=== PATIENT | female | born 1985 | race Caucasian/White ===

== ENCOUNTER 2021-01-30 10:54 | Emergency (ER) | payer OTHER, SELFPAY ==
[2021-01-30 11:09] VITALS: BP 119/86; PULSE 85; RESP 16; TEMP 36.1; O2SAT 99
--- NOTE | 2021-01-30 11:49 | ED.NAVMDI ---
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 Patient requests work excuse for a shorter couple day history of diarrhea x4-5. No fever, vomiting/diarrhea, blood, foreign travel, prior surgeries; no loss of taste/smell, CP, rash, S OB. Symptoms are mild, slightly worse with eating, associated with some minimal cramps Related Data Home Medications Medication Instructions Recorded Confirmed cholecalciferol (vitamin D3) 01/30/21 01/30/21 fluoxetine mg 01/30/21 hydrochlorothiazide 01/30/21 hydroxyzine pamoate 01/30/21 norgestimate-ethinyl estradiol tablet 01/30/21 [Vob-Nq-Kepojaxf] phentermine mg 01/30/21 quetiapine mg PO 01/30/21 trazodone 01/30/21 Allergies Allergy/AdvReac Type Severity Reaction Status Date / Time gabapentin Allergy Intermediate Other Verified 01/30/21 11:42 azithromycin Allergy Mild RASH Verified 01/30/21 11:42 quetiapine Allergy Mild INVOLUNTARY Verified 01/30/21 11:42 MOVEMENT hornet venom Allergy Unknown Anaphylactic Verified 01/30/21 11:42 Shock Review of Systems Review of Systems: General/Constitutional: No weight loss,fever Eyes: N0: Redness,discharge Ears/Nose/Throat: No: Epistaxis,ear discharge Respiratory: Denies: Hemoptysis Gastrointestinal: No Vomiting, Bleeding-rectal Skin: No Lumps, eruption Neurologic: No Focal Weakness,Sz Hematologic: Denies: Petechiae/Purpura Psychiatric: No: Suicida ideationl All Other Systems: Reviewed and Negative Exam Narrative: General Appearance: Well appearing, No distress EYE: PERRLA, Conjunctiva clear Ears: External ear normal Nose: Normal nose Mouth/Throat: Normal appearing, Normal lips Neck: Supple Respiratory: Airway patent, No respiratory distress Cardiovascular: RRR Abdomen: Soft, Non-tender, No massess, No organomegaly (no rebound/ surgical signs), Hyperactive bowel sounds Musculoskeletal: Full ROM Skin: Warm, Dry Neurological: A&O x3, CN II-X intact Psychiatric: Normal mood, Normal affect Course Vital Signs Vital signs: Vital Signs Temperature 96.9 F L 01/30/21 11:09 Pulse Rate 85 01/30/21 11:09 Respiratory Rate 16 01/30/21 11:09 Blood Pressure 119/86 01/30/21 11:09 Pulse Oximetry 99 01/30/21 11:09 Temperature 96.9 F L 01/30/21 11:09 Pulse Rate 85 01/30/21 11:09 Respiratory Rate 16 01/30/21 11:09 Blood Pressure 119/86 01/30/21 11:09 Pulse Oximetry 99 01/30/21 11:09 Discharge Plan Discharge Clinical Impression: Diarrhea Qualifiers: Diarrhea type: unspecified type Qualified Code(s): R19.7 - Diarrhea, unspecified Patient Disposition: Home, Self-Care Condition: Stable Instructions: Acute Diarrhea (ED) Additional Instructions: You may try OTC preparations like Imodium, Mylanta, Pepcid etc. Prescriptions: New diphenoxylate-atropine [Lomotil] 2.5-0.025 mg tablet 1 tablet PO DAILY PRN (Reason: diarrhea) Qty: 7 RF: 0 albuterol sulfate [Ventolin HFA] 90 mcg/actuation HFA aerosol inhaler 2 puff INHALATION QID PRN (Reason: shortness of breath or wheezing) Qty: 8.5 RF: 1 ondansetron HCl [Zofran] 4 mg tablet 4 mg PO DAILY PRN (Reason: nausea and vomiting) 1 Days Qty: 7 RF: 0 No Action phentermine 37.5 mg tablet RF: 0 trazodone 100 mg tablet RF: 0 fluoxetine 20 mg capsule RF: 0 hydroxyzine pamoate 25 mg capsule RF: 0 norgestimate-ethinyl estradiol [Qbv-Uf-Fojmicjy] 0.18/0.215/0.25 mg-25 mcg tablet RF: 0 hydrochlorothiazide 12.5 mg tablet RF: 0 cholecalciferol (vitamin D3) 1,250 mcg (50,000 unit) capsule RF: 0 quetiapine 50 mg tablet extended release 24 hr PO RF: 0 Follow-up/Referr
== END 2021-01-30 12:07 | disposition home or self-care (01) ==
PROVIDERS: Emergency Provider Emergency Medicine; PCP Student in an Organized Health Care Education/Training Program
DX: R19.7 Diarrhea, unspecified (principal)
CPT/HCPCS: 99213; G0463

== ENCOUNTER 2022-11-16 01:04 | Day surgery (SDC) | payer OTHER, SELFPAY ==
[2022-11-09 15:05] VITALS: BMI 32.0
[2022-11-16 10:12] VITALS: BP 108/74; PULSE 67; RESP 16; TEMP 36.2; O2SAT 98
[2022-11-16] MEDS: LACTATED RINGERS 1,000 ML 150 ML IV CONT (10:13)
--- NOTE | 2022-11-16 10:22 | P.PNAN_ITS ---
Anes - Initial Pre Proc Eval Procedure: Operation Date: 11/16/22 12:30 Proposed Procedures p Colonoscopy - Jason Mcakey MD Date/Time: 11/16/22 10:22 Surgeon: Jason Mackey MD Pre Op Diagnosis: family hx colon ca Patient Data Age: 37 Gender: F Height: 1.57 m Weight: 79.6 kg Last Vital Signs Temp 97.2 F L 11/16/22 10:12 Pulse 67 11/16/22 10:12 Resp 16 11/16/22 10:12 BP 108/74 11/16/22 10:12 Pulse Ox 98 11/16/22 10:12 O2 Del Method Room Air 11/16/22 10:12 Allergies Allergy/AdvReac Type Severity Reaction Status Date / Time hornet venom Allergy Unknown Anaphylactic Verified 11/16/22 10:11 Shock Home Medications Medication Instructions Recorded Confirmed Type albuterol sulfate 90 mcg/actuation 2 puff inhalation QID PRN 01/30/21 11/16/22 Rx aerosol inhaler (Ventolin HFA) shortness of breath or wheezing #8.5 grams fluoxetine 20 mg capsule (Prozac) 20 mg PO DAILY 01/30/21 11/16/22 History norgestimate 0.18 mg/0.215 mg/0.25 1 tablet PO DAILY 01/30/21 11/16/22 History mg-ethinyl estradiol 25 mcg tablet (Fkt-Cm-Mqbvmvls) phentermine 37.5 mg tablet 37.5 mg PO DAILY 01/30/21 11/16/22 History quetiapine 50 mg tablet,extended 100 mg PO HS 01/30/21 11/16/22 History release 24 hr (Seroquel XR) lurasidone 20 mg tablet (Latuda) 20 mg PO DAILY 11/09/22 11/16/22 History propranolol 40 mg tablet 40 mg PO Q12H 11/09/22 11/16/22 History Patient hx anesthesia problems: none Family hx anesthesia problems: none Results Review: All pre-operative results and documents have been reviewed as part of the pre- operative evaluation. [facility] Past Medical History Medical History Family hx of colon cancer Social History Social History Smoking status: Smoker, status unknown Anes - Eval Final PreProcedure Day of Procedure 11/16/22 10:22 Patient weight: obese Heart: regular rate and rhythm Lungs: clear to auscultation Airway: Mallampati scale class II Neurological: alert and oriented Last oral intake: >/= 8 hours ASA classification: II Emergent: no Anesthetic plan: proceed Anesthesia type and monitoring: general GIVS and standard monitoring Results Review: All pre-operative results and documents have been reviewed as part of the pre- operative evaluation. Informed Consent: The patient's anesthetic plan and its attendant risks and benefits were discussed with the patient/family/POA. Questions were solicited and answers provided to the satisfaction of the patient/family/POA.
--- NOTE | 2022-11-16 10:24 | PM.HPGS ---
History of Present Illness History of Present Illness Consent: Risks, benefits, and alternatives have been discussed and questions answered. Patient agrees to proceed with procedure. Chief complaint: family hx colon ca Narrative: Victoria Rebollar is a 37 year old female here for first colonoscopy, brother had colon cancer Review of Systems Constitutional: Constitutional: Denies headache(s) and Denies weakness Eyes: Eyes: Denies blurry vision ENT: Reports Normal hearing present, Denies headache(s) and Denies neck pain Cardiovascular: Cardiovascular: Denies chest pain and Denies dyspnea Respiratory: Respiratory: Denies dyspnea Gastrointestinal: Gastrointestinal: Reports no additional gastrointestinal complaints Genitourinary: Genitourinary: Denies dysuria Musculoskeletal: Musculoskeletal: Denies neck pain Integumentary/Breasts: Skin/Breast: Denies dry skin Neurologic: Reports Normal hearing present, Denies headache(s) and Denies weakness Psychiatric: Psychiatric: Denies anxiety Endocrine: Endocrine: Denies change in body appearance Hematologic/Lymphatic: Hematologic/Lymphatic: Denies easy bleeding Allergic/Immunologic: Allergic/Immunologic: Denies urticaria PMFSH Past Medical History Medical History Family hx of colon cancer Social History Social History Smoking status: Smoker, status unknown Meds Home Medications and Allergies Home Medications Medication Instructions Recorded Confirmed Type albuterol sulfate 90 mcg/actuation 2 puff inhalation QID PRN 01/30/21 11/16/22 Rx aerosol inhaler (Ventolin HFA) shortness of breath or wheezing #8.5 grams fluoxetine 20 mg capsule (Prozac) 20 mg PO DAILY 01/30/21 11/16/22 History norgestimate 0.18 mg/0.215 mg/0.25 1 tablet PO DAILY 01/30/21 11/16/22 History mg-ethinyl estradiol 25 mcg tablet (Kjb-Ke-Plhwvgzo) phentermine 37.5 mg tablet 37.5 mg PO DAILY 01/30/21 11/16/22 History quetiapine 50 mg tablet,extended 100 mg PO HS 01/30/21 11/16/22 History release 24 hr (Seroquel XR) lurasidone 20 mg tablet (Latuda) 20 mg PO DAILY 11/09/22 11/16/22 History propranolol 40 mg tablet 40 mg PO Q12H 11/09/22 11/16/22 History Allergies Allergy/AdvReac Type Severity Reaction Status Date / Time hornet venom Allergy Unknown Anaphylactic Verified 11/16/22 10:11 Shock Vital Signs Vital Signs - 24 hr 11/16/22 10:12 Temperature 97.2 F L Pulse Rate 67 Respiratory Rate 16 Blood Pressure 108/74 Pulse Oximetry 98 Oxygen Delivery Room Air Exam Const: General: comfortable and no acute distress HENMT: Face/Nose/Sinus: Normal nares present Eyes: General: appearance normal, both eyes and all related structures Neck: Neck: no JVD Resp: Auscultation: clear to auscultation bilaterally Cardio: Rate: regular rate Rhythm: regular rhythm GI: Inspection: non-distended GI Palp: Yes Soft to palpation Skin: General skin exam: normal color Neuro: General: gait normal Speech: normal speech Extrem: General: normal to inspection Psych: Mental Status: mental status grossly normal Assessment and Plan Assessment and plan (1) Family hx of colon cancer: Code(s): Z80.0 - Family history of malignant neoplasm of digestive organs Status: Acute Assessment and Plan: colonoscopy
[2022-11-16 10:44] VITALS: BP 92/54; PULSE 65; RESP 20; O2SAT 96
[2022-11-16 10:54] VITALS: BP 98/73; PULSE 66; RESP 19; O2SAT 97
[2022-11-16 11:04] VITALS: BP 115/75; PULSE 67; RESP 22; O2SAT 98
== END 2022-11-16 11:11 | disposition home or self-care (01) ==
PROVIDERS: PCP Student in an Organized Health Care Education/Training Program; Visit Provider Internal Medicine Gastroenterology
PROC: 0DJD8ZZ Inspection of Lower Intestinal Tract, Via Natural or Artificial Opening Endoscopic (ICD-10-PCS; CPT 45378; principal; 2022-11-16 12:30)
DX: Z12.11 Encounter for screening for malignant neoplasm of colon (principal); K64.8 Other hemorrhoids; Z80.0 Family history of malignant neoplasm of digestive organs; Z79.51 Long term (current) use of inhaled steroids; E66.9 Obesity, unspecified; Z68.32 Body mass index [BMI] 32.0-32.9, adult
CPT/HCPCS: 45378; J2704; J7120

== ENCOUNTER 2022-12-20 11:33 | Emergency (ER) | payer OTHER, SELFPAY ==
[2022-12-20 11:41] VITALS: BP 141/85; PULSE 116; RESP 16; TEMP 37.4; O2SAT 99
[2022-12-20 11:44] VITALS: BP 141/85; PULSE 116; RESP 16; TEMP 37.4; O2SAT 99
--- NOTE | 2022-12-20 12:12 | ED.GENADULT ---
HPI - General Adult General Chief complaint: Upper Respiratory Infection Stated complaint: throat pain, fever,body aches Source: patient Mode of arrival: ambulatory Limitations: no limitations History of Present Illness HPI narrative: Pt presents for evaluation of sore throat. Symptom onset about 36 hrs ago. She has experienced a fever with temp of 101.7 at home. She states it hurts to swallow and she also reports bilateral ear pain. She has some generalized body aches. She had an episode of vomiting earlier today. Denies any diarrhea. She was recently at a [employer] camp and states she may have been exposed to sick contacts while there. Related Data Home Medications Medication Instructions Recorded Confirmed norgestimate 0.18 mg/0.215 mg/0.25 1 tablet PO DAILY 01/30/21 12/20/22 mg-ethinyl estradiol 25 mcg tablet (Gar-Ww-Sbfjvwdu) quetiapine 50 mg tablet,extended 100 mg PO HS 01/30/21 12/20/22 release 24 hr (Seroquel XR) lurasidone 20 mg tablet (Latuda) 20 mg PO DAILY 11/09/22 12/20/22 propranolol 40 mg tablet 40 mg PO Q12H 11/09/22 12/20/22 dextroamphetamine-amphetamine ER 15 mg PO DAILY 12/20/22 12/20/22 15 mg 24hr capsule,extend release fluoxetine 20 mg capsule 60 mg PO DAILY 12/20/22 12/20/22 suvorexant 20 mg tablet (Belsomra) 20 mg PO HS 12/20/22 12/20/22 Allergies Allergy/AdvReac Type Severity Reaction Status Date / Time hornet venom Allergy Unknown Anaphylactic Verified 12/20/22 11:42 Shock Review of Systems Review of Systems: CONSTITUTIONAL: Reports fever. Denies chills, or sweats. EYES: Denies visual changes, redness, or discharge. ENT: Reports sore throat and bilateral otalgia CARDIOVASCULAR: Denies chest pain, palpitations, or edema. RESPIRATORY: Denies cough or dyspnea. GASTROINTESTINAL: Reports an episode of vomiting earlier today. Denies abdominal pain or diarrhea GENITOURINARY: Denies dysuria or hematuria. SKIN: Denies rash or itching. MUSCULOSKELETAL: Denies back pain, joint pain, or myalgia. NEUROLOGIC: Denies headache, numbness, dizziness, or weakness. PSYCHIATRIC: Denies anxiety or depression. [facility] Past Medical History Medical History (Updated 12/20/22 @ 12:45 by AUREA McphersonP, ) Family hx of colon cancer No pertinent past medical history Surgical History Surgical History No pertinent past surgical history Social History Social History (Updated 12/20/22 @ 12:18 by Gurvinder Michele [facility], ) Smoking status: Never smoker Substance use: never Living arrangements: with family Gender identity (if verbalized by the patient): Female Spiritual care concerns: No Exam Narrative: GENERAL: Well-appearing, well-nourished, and in no acute distress. HEAD: Normocephalic, atraumatic. EYES: PERRLA and EOMI. ENT: Nares clear, no rhinorrhea or epistaxis. Mucous membranes moist. Bilateral TM erythema. There is bilateral tonsillar swelling, erythema and white exudate. Uvula is midline. NECK: Supple. No adenopathy or masses. No carotid bruits or JVD CHEST: Clear to auscultation. No respiratory distress. No wheezes rales or rhonchi HEART: Regular rate and rhythm. No murmur heard. Normal peripheral pulses. ABDOMEN: Soft, nontender, nondistended, normal active bowel sounds. EXTREMITIES: Normal range of motion. No edema. SKIN: Warm, dry, no rash. NEURO: No focal deficits. Alert and oriented x3. PSYCH: Normal mood and affect. Course Course Emergency Course: THIS IS A 37-YEAR-OLD FEMALE WHO PRESENTED FOR EVALUATION OF SICK SYMPTOMS. STREP AND MONO WERE NEGATIVE. SHE REQUESTED A COVID TEST WHICH WAS ALSO NEGATIVE. SHE DOES HAVE BILATERAL TONSILLAR ENLARGEMENT, ERYTHEMA AND WHITE EXUDATE ON EXAM. I THINK IT WOULD BE REASONABLE TO TREAT HER WITH ORAL ANTIBIOTICS, TO WHICH SHE WAS AGREEABLE. INCREASE HYDRATION. [id number] AGENTS FOR SYMPTOM MANAGEMENT. FOLLOW UP WITH PRIMARY PROV
== END 2022-12-20 12:45 | disposition home or self-care (01) ==
PROVIDERS: Emergency Provider Nurse Practitioner; PCP Anesthesiology
DX: J02.9 Acute pharyngitis, unspecified (principal); Z20.822 Contact with and (suspected) exposure to COVID-19
CPT/HCPCS: 36416; 86308; 87081; 87426; 87880; 99213; C9803; G0463

== ENCOUNTER 2023-07-03 18:05 | Emergency (ER) | payer OTHER, SELFPAY ==
--- NOTE | 2023-07-03 18:14 | ED.URI ---
HPI - URI/Sore Throat General Chief Complaint: Upper Respiratory Infection Stated Complaint: cough,head pain,congestion,hearing issue Time Seen by Provider: 07/03/23 18:16 Source: patient Mode of arrival: ambulatory Limitations: no limitations History of Present Illness HPI Narrative: Victoria is a 38-year-old female presenting to the clinic today with complaints of cough, headache, body aches, chills, congestion, and ear pressure. She reports this has been going on for approximately 3 days. Does have a low-grade temperature in the clinic today. MD elicited complaint: fever, cough, rhinorrhea, nasal congestion and sinus pain Related Data Home Medications Medication Instructions Recorded Confirmed suvorexant 20 mg tablet (Belsomra) 20 mg PO HS 12/20/22 07/03/23 naltrexone 50 mg tablet 50 mg PO DAILY 07/03/23 07/03/23 quetiapine 200 mg tablet 200 mg PO DAILY 07/03/23 07/03/23 Allergies Allergy/AdvReac Type Severity Reaction Status Date / Time hornet venom Allergy Severe Anaphylactic Verified 07/03/23 18:13 Shock Review of Systems Review of Systems: Pertinent positives per HPI. Patient denies any fever, chills, rash, headache, visual changes, dizziness, cough, shortness of breath, chest pain, palpitations, nausea, vomiting, diarrhea, constipation, abdominal pain, or any urinary issues. [facility] Past Medical History Medical History Family hx of colon cancer No pertinent past medical history Surgical History Surgical History No pertinent past surgical history Social History Social History Smoking status: Never smoker Substance use: never Living arrangements: with family Gender identity (if verbalized by the patient): Female Spiritual care concerns: No Comments At the time of my signature, I reviewed and agree with the nursing past medical, surgical, social, and family history. There is no relevant family history pertinent to the patient complaint. Exam Narrative: General: Well-developed, obese, in no apparent distress Head: Normocephalic, atraumatic Eyes: Pupils equally round and reactive to light bilaterally, EOM intact, sclera and conjunctive clear, no discharge, lids normal Ears: TMs intact and congested, ear canals clear, no drainage, grossly hearing normal. Nose: Nares patent, clear nasal discharge, no inflammation, no sinus tenderness. Mouth: Oral pharynx without lesions or masses, good dentition, MMM. Neck: Supple, trachea midline, no enlargement of anterior or posterior cervical nodes, no thyroid masses or goiter palpable. Cardio: Regular rate and rhythm, s1 and s2 normal, no murmur appreciated. Resp: Clear to auscultation bilaterally, no rhonchi, rales, wheezing or rubs Course Course Emergency Course: Portions of this record may have been created with voice recognition software. Level of Care: Express Care Visit Vital Signs Vital signs: Vital signs reviewed MDM - URI/Sore Throat MDM Narrative Medical decision making narrative: At the time of visit patient is resting comfortably on the exam table. Patient appears to be nontoxic. Labs: COVID and influenza testing was negative in the clinic today Plan: I suspect patient has URI/viral syndrome. Work note was given. Supportive measures were discussed with the patient and they voiced understanding discharge instructions and agrees to treatment plan. Return precautions reviewed Differential Diagnosis Differential diagnosis: Likely upper respiratory infection, otitis media, sinusitis, viral infection, bronchitis, influenza, pharyngitis and other (COVID) Discharge Plan Discharge Clinical Impression: Acute viral syndrome URI (upper respiratory infection) Qualifiers: URI type: unspecified URI Qualified Code(s): J06.9 - Acute upper respira
[2023-07-03 18:15] VITALS: BP 122/85; PULSE 111; RESP 20; TEMP 37.7; O2SAT 99
== END 2023-07-03 18:43 | disposition home or self-care (01) ==
PROVIDERS: Emergency Provider Nurse Practitioner Family; PCP Student in an Organized Health Care Education/Training Program
DX: B34.9 Viral infection, unspecified (principal); J06.9 Acute upper respiratory infection, unspecified; Z20.822 Contact with and (suspected) exposure to COVID-19
CPT/HCPCS: 87426; 87804; 99213; G0463